=== PATIENT | female | born 1950 | race Caucasian/White ===

== ENCOUNTER 2017-08-16 14:59 | Emergency (ER) | payer MEDICARE, OTHER ==
[~2017-08-16] VITALS: Ht 170.2 cm; Wt 128.0 kg
[2017-08-16 15:01] VITALS: BP 162/74; PULSE 83; RESP 16; TEMP 97.3; O2SAT 97
[2017-08-16] MEDS ORDERED: LEVO200T4 PO (15:26)
[2017-08-16] MEDS ORDERED: ASPI-183 PO (15:26)
[2017-08-16] MEDS ORDERED: TOPR50TA PO (15:26)
[2017-08-16] MEDS ORDERED: PRIS50TA PO (15:26)
[2017-08-16] MEDS ORDERED: FAMO1TAB37 PO (15:26)
[2017-08-16] MEDS ORDERED: NEUR300C PO (15:26)
[2017-08-16] MEDS ORDERED: ALTA2.5C4 PO (15:26)
[2017-08-16] MEDS ORDERED: HYDR25TA5 PO (15:26)
[2017-08-16] MEDS ORDERED: LANTINJ SQ (15:26)
[2017-08-16] MEDS ORDERED: oxyCODONE/ACETAMINOPHEN 5 MG/325 MG TAB PO ONE (15:45)
--- NOTE | 2017-08-16 16:53 | PD ---
HPI Chief Complaint: Fall Time Seen by Provider: 15:32 Travel History International Travel<30 days: No Contact w/Intl Traveler<30days: No Traveled to known affect area: No History of Present Illness HPI Patient is a 67 year old female who presents to ER after mechanical fall. Patient reports that she uses cane to walk at baseline, patient reports that she has issues with her left big toe as she had a tendon release last year. Patient reports that her toe bent forward and she tripped and fell face forward onto her seat recliner. Patient reports no loss of consciousness after fall, she currently does take a full dose aspirin and is currently not on any other anticoagulants. Patient reports that when she hit her head on the chair, she fell backwards and hit her head on the floor. Patient at this time complains of mild diffuse headache as well as neck pain, right shoulder, right knee and right hip pain as she landed predominantly on her right side. Patient denies any vision changes, denies any nausea or vomiting. Patient denies any abdominal pain, no other complaints at this time. Patient reports that she was able to ambulate after her fall today. PFSH Past Medical History Hx Anticoagulant Therapy: Yes (325 MG. ASA DAILY) Arthritis: Yes Cardiovascular Problems: Yes (HTN, CHOL) High Cholesterol: Yes Diabetes: Yes Patient Takes Glucophage: No Fibromyalgia: Yes Hypertension: Yes Tetanus Vaccination: > 5 Years Influenza Vaccination: No ?: Not Menopausal: Yes Dilation and Curettage (D&C): Yes Tubal Ligation: Yes Past Surgical History Abdominal Surgery: Yes (Hernia repair ) Appendectomy: Yes Cholecystectomy: Yes Endocrine Surgery: Yes (Thyroidectomy ) Hysterectomy: Yes Tonsillectomy: Yes Other Surgery: Yes (Cyst/lymph node removed neck ) Social History Alcohol Use: Yes (Rare) Tobacco Use: No Substance Use: No Allergies-Medications (Allergen,Severity, Reaction): Coded Allergies: Cephalosporins (Verified Allergy, Severe, 08/16/17) NSAIDS (Non-Steroidal Anti-Inflamma (Verified Allergy, Severe, 08/16/17) Penicillins (Verified Allergy, Severe, 08/16/17) adhesive (Verified Allergy, Severe, 08/16/17) ciprofloxacin (Verified Allergy, Severe, 08/16/17) iodine (Verified Allergy, Severe, 08/16/17) sulfamethoxazole (Verified Allergy, Severe, 08/16/17) tetanus toxoid, adsorbed (Verified Allergy, Severe, 08/16/17) trimethoprim (Verified Allergy, Severe, 08/16/17) Uncoded Allergies: DEPOMEDROL (Allergy, Severe, 08/16/17) FLU SHOT (Allergy, Severe, 08/16/17) IVP DYE (Allergy, Severe, 08/16/17) Reported Meds & Prescriptions Reported Meds & Active Scripts Active Percocet (Oxycodone-Acetaminophen) 5-325 mg Tab 1 Tab PO Q6H PRN Reported Neurontin (Gabapentin) 300 Mg Cap 300 Mg PO DIRECTED Lantus Solostar Pen Inj (Insulin Glargine) 300 Unit/3 Ml Pen 50 Units SQ BID Levothyroxine (Levothyroxine Sodium) 200 Mcg Tab 200 Mcg PO DAILY Pristiq 24 HR (Desvenlafaxine ER 24 HR) 50 Mg Tab 50 Mg PO DAILY Altace (Ramipril) 2.5 Mg Cap 2.5 Mg PO DAILY Pepcid (Famotidine) 20 Mg Tab 20 Mg PO BID Hydrochlorothiazide 25 Mg Tab 25 Mg PO DAILY Toprol XL (Metoprolol Succinate) 50 Mg Tab 50 Mg PO DAILY Aspirin 325 Mg Tab 325 Mg PO DAILY Review of Systems General / Constitutional: No: Fever Eyes: No: Visual changes HENT: Positive: Headaches, Neck Pain Cardiovascular: No: Chest Pain or Discomfort Respiratory: No: Shortness of Breath Gastrointestinal: No: Abdominal Pain Genitourinary: No: Dysuria Musculoskeletal: Positive: Arthralgias, Limited ROM, No: Weakness, Cramping, Edema, Pain Skin: No Rash Neurologic: Positive: Headache, No: Weakness Psychiatric: No: Depression Endocrine: No: Polydipsia Hematologic/Lymphatic: No: Easy Bruising Physical Exam Narrative GENERAL: mild distress SKIN: Focused skin assessment warm/dry. HEAD: Atraumatic. Normocephalic. EYES: Pupils equal and round. No scleral icterus. No injection or drainage. ENT: No nasal bleeding or discharge. Mucous membranes pink and moist. NECK: Trachea midline. No JVD. Patient with no midline tenderness, patient does have bilateral paraspinal tenderness CARDIOVASCULAR: Regular rate and rhythm. No murmur appreciated. Patient with tenderness to the right lateral upper ribs -there is no bruising on exam, no flail chest RESPIRATORY: No accessory muscle use. Clear to auscultation. Breath sounds equal bilaterally. GASTROINTESTINAL: Abdomen soft, non-tender, nondistended. Hepatic and splenic margins not palpable. MUSCULOSKELETAL: No obvious deformities. No clubbing. No cyanosis. No edema. Patient with no obvious fractures, patient with normal range of motion is to all upper and lower extremities, no open fractures were noted NEUROLOGICAL: Awake and alert. No obvious cranial nerve deficits. Motor grossly within normal limits. Normal speech. Cranial nerves II-12 grossly intact with no neurological deficits. PSYCHIATRIC: Appropriate mood and affect; insight and judgment normal. Data Data Last Documented VS Vital Signs Date Time Temp Pulse Resp B/P (MAP) Pulse Ox O2 Delivery O2 Flow Rate FiO2 08/16/17 16:55 70 14 154/65 (94) 96 Room Air 08/16/17 15:[address] Brain W/O Iv Contrast(Rout) (08/16/17 15:41) Ct Cerv Spine W/O Contrast (08/16/17 15:41) Ct Thorax/ Chest Wo Iv Contras (08/16/17 ) Shoulder, Complete (>2vws) (08/16/17 ) Hip, Uni(Ap&Lat) W Ap Pelvis (08/16/17 ) Knee, Complete (4vws) (08/16/17 ) Foot, Complete ([id number]) (08/16/17 ) Oxycodone-Acetamin 5-325 Mg (Percocet (08/16/17 15:45) Radiology Film Requests (08/16/17 ) Ed Discharge Order (08/16/17 18:09) MDM Medical Decision Making Medical Screen Exam Complete: Yes Emergency Medical Condition: Yes Medical Record Reviewed: Yes Interpretation(s) Vital Signs Date Time Temp Pulse Resp B/P (MAP) Pulse Ox O2 Delivery O2 Flow Rate FiO2 08/16/17 15:01 97.3 83 16 162/74 (103) 97 Differential Diagnosis Intracranial hemorrhage, concussion, cervical strain, cervical fracture, rib contusion, rib fracture Narrative Course 67-year-old female presents to emergency room after she tripped and fell at home , patient does take an aspirin daily. Patient with complaints of headache, neck pain, right-sided shoulder, hip, knee, left foot pain. Patient was able to ambulate after the fall, patient suffered no loss of consciousness after the fall. During the course of the patients emergency department visit, the patients history, examination, and differential diagnosis were reviewed with the patient. The patient was placed on a cardiac rehabilitation program director with oximetry and frequent blood pressure monitoring. The patient was initially provided Percocet for pain. Radiology studies were reviewed and remarkable for: Last Impressions Head CT 08/16/171540 Signed Impressions: Service Date/Time: Wednesday, August 16, 2017 16:36 - CONCLUSION: 1. No acute findings in the brain. Marc Sewell MD Cervical Spine CT 08/16/171540 Signed Impressions: Service Date/Time: Wednesday, August 16, 2017 16:36 - CONCLUSION: 1. No evidence of compression deformity or spondylolisthesis. 2. Moderate degenerative changes in the lower cervical spine with straightening of the cervical lordosis. Marc Sewell MD Shoulder X-Ray 08/16/17 0000 Signed Impressions: Service Date/Time: Wednesday, August 16, 2017 16:05 - CONCLUSION: 1. Calcific tendinosis and prominent inferior a.c. joint osteophytes. 2. No evidence of fracture or dislocation. Marc Sewell MD Knee X-Ray 08/16/17 0000 Signed Impressions: Service Date/Time: Wednesday, August 16, 2017 16:05 - CONCLUSION: No evidence of recent bony injury. Marc Sewell MD Hip and Pelvis X-Ray 08/16/17 0000 Signed Impressions: Service Date/Time: Wednesday, August 16, 2017 16:05 - CONCLUSION: Symmetric mild degenerative changes in the hips. No fracture seen. Marc Sewell MD Foot X-Ray 08/16/17 Signed Impressions: Service Date/Time: Wednesday, August 16, 2017 16:05 - CONCLUSION: Avulsive fracture lateral aspect of the proximal phalanx of the 1st digit. Marc Sewell MD Chest CT 08/16/17 0000 Signed Impressions: Service Date/Time: Wednesday, August 16, 2017 16:40 - CONCLUSION: 1. No evidence of fracture, effusion, or pneumothorax. 2. There are multiple calcified nodules scattered throughout both lungs, but there is also an 11 mm area of groundglass opacity right midlung and a 6 mm nodule in the medial left lower lung. In accordance with Fleischner Society guidelines, recommend followup noncontrast CT in 3 months. Marc Sewell MD CTs were reviewed, CT of the head and neck with no acute injuries, CT of the chest does show multiple calcified nodules, there is also a groundglass opacity in right midlung, a copy of patient's CT reports were given to her as she will need to follow-up with all incidental findings at discharge. X-ray shoulder shows calcific tendinosis and prominent osteophytes, no obvious fractures, x- ray of the foot shows an avulsion fracture of the lateral angle of the proximal phalanx of the first digit and MTP joint with mild displacement. this digit was colt taped, discussed need for her to follow with orthopedic surgery vs tie worker as outpatient. Patient is ambulatory in the emergency room, I reviewed all studies including all incidental findings with the patient in detail. Patient will follow up with her primary care doctor and will return to the emergency room as needed. Signs and symptoms of when to return to the emergency room was reviewed with patient in detail. As per pt's pulmonary nodules, she has follow up with her pcp next month, she will bring her cd with radiology studies as well as reports as she understands importance of follow up with these findings. Diagnosis Primary Impression: Fracture of proximal phalanx of toe of left foot Additional Impressions: calcific tendinosis Pulmonary nodule Fall Cervical strain, acute Rib sprain Patient Instructions: Narcotic given in the ED, General Instructions Additional Instructions: Please provide patient with a copy of their lab work and studies at discharge* * Please follow up with your primary care doctor in 2-3 days Return to the ER if symptoms worsen or progress Return to the ER as needed Please follow-up with orthopedic surgeon or tie worker for your broken toe You will need follow-up as soon as possible for the pulmonary nodule seen on your CT chest report. Med/Other Pt SpecificInfo: Prescription(s) given Scripts Oxycodone-Acetaminophen (Percocet) 5-325 mg Tab 1 TAB PO Q6H Y for PAIN, #12 TAB 0 Refills Prov: Celi Carpio DO 08/16/17 Disposition: 01 DISCHARGE HOME Condition: Stable Celi Carpio DO Aug 16, 2017 16:53
[2017-08-16 16:55] VITALS: BP 154/65; PULSE 70; RESP 14; O2SAT 96
--- NOTE | 2017-08-16 17:19 | RADRPT ---
EXAM DATE/TIME: 08/16/2017 16:36 [facility] COMPARISON: No previous studies available for comparison. INDICATIONS : Trauma. Fall. Head, neck and right chest and upper back pain. RADIATION DOSE: 65.74 CTDIvol (mGy) MEDICAL HISTORY : Diabetes mellitus type 2. Hypertension. SURGICAL HISTORY : Appendectomy. Tubal ligation.Hysterectomy.Cholecystectomy. ENCOUNTER: Initial ACUITY: 1 day PAIN SCALE: 5/10 LOCATION: cranial TECHNIQUE: Multiple contiguous axial images were obtained of the head. Using automated exposure control and adj ustment of the mA and/or kV according to patient size, radiation dose was kept as low as reasonably a chievable to obtain optimal diagnostic quality images. DICOM format image data is available electro nically for review and comparison. FINDINGS: CEREBRUM: The ventricles are normal for age. No evidence of midline shift, mass lesion, hemorrhage or acute in farction. No extra-axial fluid collections are seen. POSTERIOR FOSSA: The cerebellum and brainstem are intact. The 4th ventricle is midline. The cerebellopontine angle i s unremarkable. EXTRACRANIAL: The visualized portion of the orbits is intact. SKULL: The calvaria is intact. No evidence of skull fracture. CONCLUSION: 1. No acute findings in the brain. Marc Sewell MD on August 16, 2017 at 17:02 Board Certified Radiologist. This report was verified electronically.
--- NOTE | 2017-08-16 17:22 | RADRPT ---
EXAM DATE/TIME: 08/16/2017 16:36 [facility] COMPARISON: No previous studies available for comparison. INDICATIONS : Trauma. Fall. Head, neck and right chest and upper back pain. RADIATION DOSE: 36.61 CTDIvol (mGy) ; Patient body habitus MEDICAL HISTORY : Diabetes mellitus type 2. Hypertension. SURGICAL HISTORY : Appendectomy. Cholecystectomy.Tubal ligation.Hysterectomy. ENCOUNTER: Initial ACUITY: 1 day PAIN SCALE: 7/10 LOCATION: Bilateral neck TECHNIQUE: Volumetric scanning of the cervical spine was performed. Multiplanar reconstructions in the sagittal, coronal and oblique axial planes were performed. Using automated exposure control and adjustment o f the mA and/or kV according to patient size, radiation dose was kept as low as reasonably achievable to obtain optimal diagnostic quality images. DICOM format image data is available electronically f or review and comparison. FINDINGS: There is straightening of the cervical lordosis. Vertebral body height is maintained. Moderate narr owing of the interspaces C3-C7 with partially bridging anterior paravertebral ossification in small p osterior osteophytes. The posterior elements are normal without evidence of locked or perched facets . The atlantoaxial articulation is intact. Soft tissue ossification is present superficial to the C 4 spinous process. C2-C3: No fracture seen. The neural foramina are patent. C3-C4: No fracture seen. The neural foramina are patent. C4-C5: No fracture seen. Mild bilateral neural foraminal stenosis. C5-C6: No fracture seen. Moderate bilateral neural foraminal stenosis. C6-C7: No fracture seen. The neural foramina are patent. C7-T1: No fracture seen. The neural foramina are patent. CONCLUSION: 1. No evidence of compression deformity or spondylolisthesis. 2. Moderate degenerative changes in the lower cervical spine with straightening of the cervical lordo sis. Marc Sewell MD on August 16, 2017 at 17:16 Board Certified Radiologist. This report was verified electronically.
--- NOTE | 2017-08-16 17:26 | RADRPT ---
EXAM DATE/TIME: 08/16/2017 16:40 [facility] COMPARISON: No previous studies available for comparison. INDICATIONS : Trauma. Fall. Head, neck and right chest and upper back pain. RADIATION DOSE: 29.81 CTDIvol (mGy) ; Patient body habitus MEDICAL HISTORY : Diabetes mellitus type 2. Hypertension. SURGICAL HISTORY : Appendectomy. Cholecystectomy.Tubal ligation. Hysterectomy. ENCOUNTER: Initial ACUITY: 1 day PAIN SCALE: 8/10 LOCATION: Right chest TECHNIQUE: Volumetric scanning of the chest was performed. Using automated exposure control and adjustment of t he mA and/or kV according to patient size, radiation dose was kept as low as reasonably achievable to obtain optimal diagnostic quality images. DICOM format image data is available electronically for r eview and comparison. Follow-up recommendations for detected pulmonary nodules are based at a minimum on nodule size and pa tient risk factors according to Fleischner Society Guidelines. FINDINGS: LUNGS: There are numerous bilateral calcified pulmonary nodules which measure 10 mm or less. The calcificat ion is at the periphery of the nodules. There are also several noncalcified lesions, the largest is in the right midlung adjacent to the minor fissure, best seen on image #25 measuring 12 mm. There is a 6 mm noncalcified nodule in the periphery of left midlung (image #35). PLEURAE: There is no pleural thickening or pleural effusion. MEDIASTINUM: The heart and great vessels demonstrate no acute abnormality. There is no mediastinal or hilar lymph adenopathy. AXILLAE: Within normal limits. No lymphadenopathy. MUSCULOSKELETAL: No fracture seen. MISCELLANEOUS: The visualized upper abdominal organs demonstrate no acute abnormality. CONCLUSION: 1. No evidence of fracture, effusion, or pneumothorax. 2. There are multiple calcified nodules scattered throughout both lungs, but there is also an 11 mm a patricia of groundglass opacity right midlung and a 6 mm nodule in the medial left lower lung. In accorda nce with Fleischner Society guidelines, recommend followup noncontrast CT in 3 months. Marc Sewell MD on August 16, 2017 at 17:19 Board Certified Radiologist. This report was verified electronically.
--- NOTE | 2017-08-16 17:36 | RADRPT ---
EXAM DATE/TIME: 08/16/2017 16:05 [facility] COMPARISON: No previous studies available for comparison. INDICATIONS : Right shoulder pain after falling today. MEDICAL HISTORY : Hypertension. Diabetes mellitus type II. SURGICAL HISTORY : None. ENCOUNTER: Initial ACUITY: 1 day PAIN SCORE: 8/10 LOCATION: Right head of humerus. FINDINGS: There is normal range of motion between internal and external rotation. [place]ne calcification is paxton cent to the greater tuberosity suggesting calcific tendinosis. Prominent inferior osteophytes at the a.c. joint could cause impingement symptoms. On the transscapular Y-view, there is normal alignment of the humeral head and glenoid. Visualized right upper ribs are intact. CONCLUSION: 1. Calcific tendinosis and prominent inferior a.c. joint osteophytes. 2. No evidence of fracture or dislocation. Marc Sewell MD on August 16, 2017 at 17:32 Board Certified Radiologist. This report was verified electronically.
--- NOTE | 2017-08-16 17:36 | RADRPT ---
EXAM DATE/TIME: 08/16/2017 16:05 [facility] COMPARISON: No previous studies available for comparison. INDICATIONS : Right knee pain after falling today. MEDICAL HISTORY : Hypertension. Diabetes mellitus type II. SURGICAL HISTORY : None. ENCOUNTER: Initial ACUITY: 1 day PAIN SCORE: 4/10 LOCATION: Right patella and medial knee. FINDINGS: Four view examination of the right knee demonstrates no evidence of fracture or dislocation. Bony mi neralization is moderately decreased. The articular surfaces are intact. The suprapatellar soft tis sues have a normal configuration. CONCLUSION: No evidence of recent bony injury. Marc Sewell MD on August 16, 2017 at 17:34 Board Certified Radiologist. This report was verified electronically.
--- NOTE | 2017-08-16 17:39 | RADRPT ---
EXAM DATE/TIME: 08/16/2017 16:05 [facility] COMPARISON: No previous studies available for comparison. INDICATIONS : Left foot pain after falling today. MEDICAL HISTORY : Hypertension. Diabetes mellitus type II. SURGICAL HISTORY : None. ENCOUNTER: Initial ACUITY: 1 day PAIN SCORE: 4/10 LOCATION: Left lateral foot. FINDINGS: Mild osteopenia. There is an avulsive fracture off of the lateral angle of the proximal phalanx of t he 1st digit at the MTP joint with mild displacement. The osseous structures of the 2nd through 5th digit are intact. Ossification in the plantar fascia. No radiopaque foreign bodies. CONCLUSION: Avulsive fracture lateral aspect of the proximal phalanx of the 1st digit. Marc Sewell MD on August 16, 2017 at 17:34 Board Certified Radiologist. This report was verified electronically.
--- NOTE | 2017-08-16 17:43 | RADRPT ---
EXAM DATE/TIME: 08/16/2017 16:05 [facility] COMPARISON: No previous studies available for comparison. INDICATIONS : Right hip pain after falling today. MEDICAL HISTORY : Hypertension. Diabetes mellitus type II. SURGICAL HISTORY : None. ENCOUNTER: Initial ACUITY: 1 day PAIN SCORE: 6/10 LOCATION: Right hip joint. FINDINGS: Examination of the right hip was performed with AP Pelvis. The primary and secondary trabecular omar irwin of the femoral neck is intact. The hip joint is mildly narrowed superiorly, similar to the contr alateral side. The acetabulum is grossly intact. Multiple metallic corkscrew anchors in the right l ower quadrant. CONCLUSION: Symmetric mild degenerative changes in the hips. No fracture seen. Marc Sewell MD on August 16, 2017 at 17:36 Board Certified Radiologist. This report was verified electronically.
[2017-08-16] MEDS ORDERED: PERC5TAB12 PO (18:04)
[2017-08-16 18:25] VITALS: BP 137/79; PULSE 80; RESP 14; O2SAT 94
== END 2017-08-16 19:00 | disposition home or self-care (01) ==
LOC: PHED 14:59
DX: S92.412A Displaced fracture of proximal phalanx of left great toe, initial encounter for closed fracture (principal); S16.1XXA Strain of muscle, fascia and tendon at neck level, initial encounter; R91.1 Solitary pulmonary nodule; S23.41XA Sprain of ribs, initial encounter; M25.511 Pain in right shoulder; M25.561 Pain in right knee; M50.321 Other cervical disc degeneration at C4-C5 level; M50.322 Other cervical disc degeneration at C5-C6 level; W01.190A Fall on same level from slipping, tripping and stumbling with subsequent striking against furniture, initial encounter
CPT/HCPCS: 70450; 71250; 72125; 73030; 73502; 73564; 73630; 99283

== ENCOUNTER 2017-08-18 14:43 | Emergency (ER) | payer MEDICARE, OTHER ==
[~2017-08-18] VITALS: Ht 170.2 cm; Wt 128.0 kg
[~2017-08-18 14:43] MED LIST: ALTA2.5C4 PO; ASPI-183 PO; FAMO1TAB37 PO; HYDR25TA5 PO; LANTINJ SQ; LEVO200T4 PO; NEUR300C PO; PERC5TAB12 PO; PRIS50TA PO; TOPR50TA PO
[2017-08-18 14:57] VITALS: BP 178/77; PULSE 74; RESP 18; TEMP 98.6; O2SAT 98
[2017-08-18] MEDS ORDERED: DOXY100C PO (17:19)
--- NOTE | 2017-08-18 17:23 | PD ---
HPI Chief Complaint: Skin Problem Time Seen by Provider: 16:39 Travel History International Travel<30 days: No Contact w/Intl Traveler<30days: No Traveled to known affect area: No History of Present Illness HPI Patient is a 67-year-old female who returns to the emergency room for evaluation of blister to her left digit #1. Patient was seen in the emergency room on August 16, 2017 after she fell and injured her left foot. At that time, patient was diagnosed with an avulsive fracture of the lateral aspect of the proximal phalanx of the first digit. Patient reports that she has a tight wrap around her left digit, reports that she noticed a hemorrhagic blister to the area of her avulsion fracture. Patient was concerned as she wasn't sure what to do with the blister. Patient also notes that her toe is swollen. Patient with no other complaints PFSH Past Medical History Hx Anticoagulant Therapy: Yes (325 MG. ASA DAILY) Arthritis: Yes Cardiovascular Problems: Yes (HTN) High Cholesterol: Yes Diabetes: Yes Patient Takes Glucophage: No Diminished Hearing: No Fibromyalgia: Yes Hypertension: Yes Respiratory: Yes (NODULES IN LUNGS) Influenza Vaccination: No Menopausal: Yes Dilation and Curettage (D&C): Yes Tubal Ligation: Yes Past Surgical History Abdominal Surgery: Yes (Hernia repair ) Appendectomy: Yes Cholecystectomy: Yes Endocrine Surgery: Yes (Thyroidectomy ) Hysterectomy: Yes Tonsillectomy: Yes Other Surgery: Yes (Cyst/lymph node removed neck ) Social History Alcohol Use: Yes (Rare) Tobacco Use: No Substance Use: No Allergies-Medications (Allergen,Severity, Reaction): Coded Allergies: Cephalosporins (Verified Allergy, Severe, 08/18/17) NSAIDS (Non-Steroidal Anti-Inflamma (Verified Allergy, Severe, 08/18/17) Penicillins (Verified Allergy, Severe, 08/18/17) adhesive (Verified Allergy, Severe, 08/18/17) ciprofloxacin (Verified Allergy, Severe, 08/18/17) iodine (Verified Allergy, Severe, 08/18/17) sulfamethoxazole (Verified Allergy, Severe, 08/18/17) tetanus toxoid, adsorbed (Verified Allergy, Severe, 08/18/17) trimethoprim (Verified Allergy, Severe, 08/18/17) Uncoded Allergies: DEPOMEDROL (Allergy, Severe, 08/16/17) FLU SHOT (Allergy, Severe, 08/16/17) IVP DYE (Allergy, Severe, 08/16/17) Reported Meds & Prescriptions Reported Meds & Active Scripts Active Doxycycline Hyclate 100 Mg Cap 100 Mg PO BID Percocet (Oxycodone-Acetaminophen) 5-325 mg Tab 1 Tab PO Q6H PRN Reported Neurontin (Gabapentin) 300 Mg Cap 300 Mg PO DIRECTED Lantus Solostar Pen Inj (Insulin Glargine) 300 Unit/3 Ml Pen 50 Units SQ BID Levothyroxine (Levothyroxine Sodium) 200 Mcg Tab 200 Mcg PO DAILY Pristiq 24 HR (Desvenlafaxine ER 24 HR) 50 Mg Tab 50 Mg PO DAILY Altace (Ramipril) 2.5 Mg Cap 2.5 Mg PO DAILY Pepcid (Famotidine) 20 Mg Tab 20 Mg PO BID Hydrochlorothiazide 25 Mg Tab 25 Mg PO DAILY Toprol XL (Metoprolol Succinate) 50 Mg Tab 50 Mg PO DAILY Aspirin 325 Mg Tab 325 Mg PO DAILY Review of Systems General / Constitutional: No: Fever Eyes: No: Visual changes HENT: No: Headaches Cardiovascular: No: Chest Pain or Discomfort Respiratory: No: Shortness of Breath Gastrointestinal: No: Abdominal Pain Genitourinary: No: Dysuria Musculoskeletal: Positive: Pain (left toe digit #1) Skin: No Rash Neurologic: No: Weakness Psychiatric: No: Depression Endocrine: No: Polydipsia Hematologic/Lymphatic: No: Easy Bruising Physical Exam Narrative GENERAL: NAD SKIN: Focused skin assessment warm/dry. HEAD: Atraumatic. Normocephalic. EYES: Pupils equal and round. No scleral icterus. No injection or drainage. ENT: No nasal bleeding or discharge. Mucous membranes pink and moist. NECK: Trachea midline. No JVD. CARDIOVASCULAR: Regular rate and rhythm. No murmur appreciated. RESPIRATORY: No accessory muscle use. Clear to auscultation. Breath sounds equal bilaterally. GASTROINTESTINAL: Abdomen soft, non-tender, nondistended. Hepatic and splenic margins not palpable. MUSCULOSKELETAL: No obvious deformities. No clubbing. No cyanosis. Patient with swelling and bruising to left phalanx digit #1, she does have a hemorrhagic blister to the lateral aspect of proximal phalanx of the 1st digit, pulses intact, neurovascularly intact. NEUROLOGICAL: Awake and alert. No obvious cranial nerve deficits. Motor grossly within normal limits. Normal speech. PSYCHIATRIC: Appropriate mood and affect; insight and judgment normal. Data Data Last Documented VS Vital Signs Date Time Temp Pulse Resp B/P (MAP) Pulse Ox O2 Delivery O2 Flow Rate FiO2 08/18/17 14:57 98.6 74 18 178/77 (110) 98 [facility] Medical Decision Making Medical Screen Exam Complete: Yes Emergency Medical Condition: Yes Medical Record Reviewed: Yes Interpretation(s) Vital Signs Date Time Temp Pulse Resp B/P (MAP) Pulse Ox O2 Delivery O2 Flow Rate FiO2 08/18/17 14:57 98.6 74 18 178/77 (110) 98 Differential Diagnosis Hemorrhagic blister, infection, toe fracture Narrative Course Patient with a hemorrhagic blister to the left proximal phalanx of digit #1, there are no signs of infection. Discussed with patient that she should not pop this hemorrhagic blister, understands needs to ice the blister and keep it covered. Patient will return to the emergency room in 48 hours for reevaluation of her toe. Signs and symptoms of infection was reviewed with patient in detail. Patient appreciative of care. Diagnosis Primary Impression: Blister of toe without infection Qualified Codes: S90.425A - Blister (nonthermal), left lesser toe(s), initial encounter Patient Instructions: General Instructions Additional Instructions: Please place ice pack to toe for 10 min on and then 10 min off Do not pop the blister! Keep blister covered Follow up in 48 hours Return to ER if you develop any signs of infection Med/Other Pt SpecificInfo: Prescription(s) given Scripts Doxycycline Hyclate (Doxycycline Hyclate) 100 Mg Cap 100 MG PO BID for Infection, #20 CAP 0 Refills Prov: Celi Carpio DO 08/18/17 Disposition: 01 DISCHARGE HOME Condition: Stable Celi Carpio DO Aug 18, 2017 17:23
== END 2017-08-18 17:38 | disposition home or self-care (01) ==
LOC: PHED 14:43
DX: S90.425A Blister (nonthermal), left lesser toe(s), initial encounter (principal); M19.90 Unspecified osteoarthritis, unspecified site; I10 Essential (primary) hypertension; E78.00 Pure hypercholesterolemia, unspecified; E11.9 Type 2 diabetes mellitus without complications; M79.7 Fibromyalgia; W19.XXXA Unspecified fall, initial encounter; Z79.82 Long term (current) use of aspirin; Z79.4 Long term (current) use of insulin
CPT/HCPCS: 99283